=== PATIENT | female | born 1970 | race Asian ===

== ENCOUNTER → 2019-05-26 | Outpatient (REF) | payer OTHER ==
[2019-05-26 12:19] LABS: IONIZED CALCIUM 4.6 MG/DL (4.5-5.3)
[2019-05-26 12:20] LABS: BASO % 0.7 % (0.0-1.0); HEMATOCRIT 41.9 % (36.0-47.0); HEMOGLOBIN 14.3 g/dl (12.0-15.5); LYMPH # 1.2 10^3/uL (1.5-5.0); LYMPH % 43.4 % (24.0-44.0); MEAN CORPUSCULAR HEMOGLOBIN 31.8 pg (27.0-33.0); MEAN CORPUSCULAR HGB CONC 34.1 g/dl (32.0-36.5); MEAN CORPUSCULAR VOLUME 93.3 fl (80.0-96.0); MONO # 0.2 10^3/uL (0.0-0.8); MONO % 7.3 % (0.0-5.0); NEUTROPHILS # 1.4 10^3/uL (1.5-8.5); NEUTROPHILS % 48.3 % (36.0-66.0); PLATELET COUNT, AUTOMATED 194 10^3/uL (150-450); RED BLOOD COUNT 4.49 10^6/uL (4.00-5.40); WHITE BLOOD COUNT 2.9 10^3/uL (4.0-10.0)
[2019-05-26 13:04] LABS: ALBUMIN 4.5 GM/DL (3.2-5.2); ALT/SGPT 35 U/L (12-78); BILIRUBIN,TOTAL 0.5 MG/DL (0.2-1.0); BLOOD UREA NITROGEN 14 MG/DL (7-18); CALCIUM LEVEL 9.4 MG/DL (8.5-10.1); CARBON DIOXIDE LEVEL 29 MEQ/L (21-32); CHLORIDE LEVEL 103 MEQ/L (98-107); CHOLESTEROL LEVEL 288 MG/DL (<200); CHOLESTEROL RISK RATIO 1.959 (<5); CREATININE FOR GFR 0.56 MG/DL (0.55-1.30); FOLLICLE STIMULATING HORMONE 6.1 mIU/mL; FREE T4 0.77 NG/DL (0.76-1.46); GLOMERULAR FILTRATION RATE > 60.0 (>58); GLUCOSE, FASTING 85 MG/DL (70-100); HDL CHOLESTEROL 147 MG/DL (>40); IRON (FE) 91 UG/DL (50-170); LDL CHOLESTEROL 133 MG/DL (<100); NON-HDL-C 141 MG/DL; POTASSIUM SERUM 3.7 MEQ/L (3.5-5.1); PTH INTACT 64.9 PG/ML (18.5-88.0); SODIUM LEVEL 140 MEQ/L (136-145); TOTAL 25(OH) VITAMIN D 86.2 NG/ML (30.0-100.0); TRIGLYCERIDES LEVEL 39 MG/DL (<150)
[2019-05-26 13:56] LABS: HEMOGLOBIN A1c 5.3 %
== END ==
LOC: M SFHCPLAZ 10:43
PROVIDERS: ATTEND Family Medicine
DX: Z13.29 Encounter for screening for other suspected endocrine disorder (principal); Z13.220 Encounter for screening for lipoid disorders; Z87.898 Personal history of other specified conditions; Z13.0 Encounter for screening for diseases of the blood and blood-forming organs and certain disorders involving the immune mechanism; K08.9 Disorder of teeth and supporting structures, unspecified; N95.1 Menopausal and female climacteric states

== ENCOUNTER → 2019-07-07 | Outpatient (CLI) | payer OTHER ==
[2019-07-07 10:30] LABS: HEMATOCRIT 37.8 % (36.0-47.0); HEMOGLOBIN 12.8 g/dl (12.0-15.5); MEAN CORPUSCULAR HEMOGLOBIN 31.7 pg (27.0-33.0); MEAN CORPUSCULAR HGB CONC 33.9 g/dl (32.0-36.5); MEAN CORPUSCULAR VOLUME 93.6 fl (80.0-96.0); PLATELET COUNT, AUTOMATED 179 10^3/uL (150-450); RED BLOOD COUNT 4.04 10^6/uL (4.00-5.40); WHITE BLOOD COUNT 2.9 10^3/uL (4.0-10.0)
[2019-07-07 11:33] LABS: ALBUMIN 3.9 GM/DL (3.2-5.2); ALT/SGPT 29 U/L (12-78); BILIRUBIN,TOTAL 0.4 MG/DL (0.2-1.0); BLOOD UREA NITROGEN 11 MG/DL (7-18); CALCIUM LEVEL 8.6 MG/DL (8.5-10.1); CARBON DIOXIDE LEVEL 28 MEQ/L (21-32); CHLORIDE LEVEL 100 MEQ/L (98-107); CHOLESTEROL LEVEL 220 MG/DL (<200); CHOLESTEROL RISK RATIO 1.718 (<5); ESTRADIOL < 19.0 PG/ML; GLOMERULAR FILTRATION RATE > 60.0 (>58); GLUCOSE, FASTING 88 MG/DL (70-100); HDL CHOLESTEROL 128 MG/DL (>40); IRON (FE) 72 UG/DL (50-170); LDL CHOLESTEROL 85 MG/DL (<100); LUTEINIZING HORMONE 0.3 mIU/mL; NON-HDL-C 92 MG/DL; PERCENT SATURATION 23.7 % (13.2-45.0); SODIUM LEVEL 133 MEQ/L (136-145); THYROID PEROXIDASE ANTIBODY < 28.0 U/ML (<60.0); THYROXINE (T4) 6.9 UG/DL (4.5-12.0); TOTAL 25(OH) VITAMIN D 73.9 NG/ML (30.0-100.0); TOTAL IRON BINDING CAPACITY 304 UG/DL (250-450); TOTAL PROTEIN 6.5 GM/DL (6.4-8.2); TOTAL T3 43.1 NG/DL (60.0-181.0); TRIGLYCERIDES LEVEL 33 MG/DL (<150); VITAMIN B12 LEVEL 1794 PG/ML (247-911)
[2019-07-07 12:34] LABS: HEMOGLOBIN A1c 4.7 %
--- NOTE | 2019-07-07 12:38 | ECGEPIP ---
[facility] Test Date: 2019-07-07 Pat Name: LEENA CAMPUZANO Department: Room: - Gender: Female Director Of Retail Marketing: DARÍO : 1970 Requested By: Dev Barajas Order Number: [id number] Reading MD: Star Nelson Measurements Intervals Gore Rate: 53 P: 69 AR: 180 QRS: 87 QRSD: 88 T: 51 QT: 428 QTc: 402 Interpretive Statements Sinus bradycardia LA conduction disturbance? Somewhat low voltages with rightward axis, slow precordial R-wave progression, persistent S waves V5 and V6, and miniscule inferior Q waves;Body habitus versus pulmonary disease Nonspecific ST/T-wave abnormalities No prior tracing for comparison. Clincal correlation advised Electronically Signed on 07-07-2019 12:37:57 EDT by Star Nelson
--- NOTE | 2019-07-07 13:37 | REP ---
REASON: Fatigue, anemia, and hypothyroidism. No priors. FINDINGS: The superior mediastinal structures are midline. The cardiac silhouette is unremarkable in size, shape, and position. The diaphragmatic surfaces of the lungs are regular, and the costophrenic angles are clear. The pulmonary quick are clear. The imaged osseous structures are intact. IMPRESSION: There is no acute cardiopulmonary disease. Electronically Signed by Adiel Ling DO 07/07/2019 04:18 P
== END ==
LOC: M LAB 09:10
PROVIDERS: ATTEND Family Medicine
DX: R53.83 Other fatigue (principal); D64.9 Anemia, unspecified; E03.9 Hypothyroidism, unspecified

== ENCOUNTER → 2021-07-04 | Outpatient (CLI) | payer OTHER ==
[2021-07-04 10:51] LABS: FREE T4 0.96 NG/DL (0.76-1.46); THYROID STIMULATING HORMONE 1.91 uIU/ML (0.358-3.740)
[2021-07-05 18:07] LABS: SSA SJOGRENS A <0.2 AI (0.0-0.9); SSB SJOGRENS B <0.2 AI (0.0-0.9)
== END ==
LOC: M LAB 08:21
PROVIDERS: ATTEND Nurse Practitioner Family
DX: E03.9 Hypothyroidism, unspecified (principal); R68.2 Dry mouth, unspecified

== ENCOUNTER → 2021-12-07 | Outpatient (CLI) | payer OTHER ==
[2021-12-07 10:10] LABS: FREE T3 1.9 PG/ML (2.2-4.0); FREE T4 0.83 NG/DL (0.76-1.46); THYROID STIMULATING HORMONE 0.134 uIU/ML (0.358-3.740)
[2021-12-08 08:02] LABS: TOTAL T3 59.4 NG/DL (60.0-181.0)
== END ==
LOC: M LAB 07:56
PROVIDERS: ATTEND Internal Medicine Endocrinology, Diabetes & Metabolism
DX: E03.9 Hypothyroidism, unspecified (principal)

== ENCOUNTER → 2022-01-04 | Outpatient (CLI) | payer OTHER ==
[2022-01-04 10:34] LABS: FREE T3 2.1 PG/ML (2.2-4.0); FREE T4 0.76 NG/DL (0.76-1.46); THYROID STIMULATING HORMONE 0.025 uIU/ML (0.358-3.740)
== END ==
LOC: M LAB 08:07
PROVIDERS: ATTEND Internal Medicine Endocrinology, Diabetes & Metabolism
DX: E03.9 Hypothyroidism, unspecified (principal)